=== PATIENT | female | born 1975 | race Caucasian/White ===

== ENCOUNTER 2016-07-05 22:58 | Emergency (ER) | payer SELFPAY ==
[~2016-07-05] VITALS: Ht 167.6 cm; Wt 106.0 kg
[~2016-07-05 22:58] MED LIST: BEN25 PO; BENA20TA48 PO; FAMO-18 PO; PRED20TA PO
[2016-07-05 23:13] VITALS: Ht 167.6 cm; Wt 106.0 kg
== END 2016-07-06 00:49 | disposition left against medical advice (07) ==
LOC: E/R 22:58
DX: Z53.21 Procedure and treatment not carried out due to patient leaving prior to being seen by health care provider (principal)

== ENCOUNTER 2016-10-22 10:36 | Emergency (ER) | payer MEDICAID ==
[~2016-10-22] VITALS: Ht 162.6 cm; Wt 104.0 kg
[~2016-10-22 10:36] MED LIST changes: -FAMO-18 PO; +FAMO-96 PO
[2016-10-22 10:40] VITALS: Ht 162.6 cm; Wt 104.0 kg
--- NOTE | 2016-10-22 10:57 | ERD ---
ER Documentation Chief Complaint Date/Time DATE: 10/22/16 TIME: 10:54 Chief Complaint LT HAND PAIN /SWOLLEN X 1 DAY HPI Patient is a xrnao-ibyn-jofaichu 41-year-old female who states that yesterday she accidentally stuck her left hand smashed between a window in a car door. She now has pain in the left hand and wrist. She has not taken any medications for pain. She denies any numbness or tingling. Denies any other injury. Pain is 4 out of 10 throbbing nonradiating. ROS All systems reviewed and are negative except as per history of present illness. Medications Home Meds Active Scripts Ibuprofen* (Motrin*) 600 Mg Tab, 600 MG PO Q6, #30 TAB Prov:ELEN TILLEY PA-C 10/22/16 Diphenhydramine Hcl* (Benadryl*) 25 Mg Cap, 25 MG PO Q6, #13 CAP Prov:ONIEL ORTEGA DO 11/28/15 Prednisone* (Prednisone*) 20 Mg Tab, 40 MG PO DAILY for 4 Days, TAB Prov:ONIEL ORTEGA DO 11/28/15 Famotidine* (Pepcid*) 20 Mg Tablet, 20 MG PO BID for 4 Days, TAB Prov:ONIEL ORTEGA DO 11/28/15 Reported Medications Benazepril Hcl* (Benazepril Hcl*) 20 Mg Tablet, 20 MG PO DAILY, #30 TAB 11/28/15 Allergies Allergies: Coded Allergies: No Known Allergy (Verified , 11/28/15) PMhx/Soc History of Surgery: Yes (CHOLECYSTECTOMY 2009) Anesthesia Reaction: No Hx Neurological Disorder: No Hx Respiratory Disorders: Yes (ASTHMA NO MEDS) Hx Cardiac Disorders: No Hx Psychiatric Problems: No Hx Miscellaneous Medical Probl: No (LIVER PROBLEMS) Hx Alcohol Use: No Hx Substance Use: No Hx Tobacco Use: No FmHx Family History: diabetes Physical Exam Vitals Vital Signs Date Time Temp Pulse Resp B/P Pulse Ox O2 Delivery O2 Flow Rate FiO2 10/22/16 10:40 98.1 87 18 136/66 98 Physical Exam General: well developed, well nourished, alert, nontoxic, no distress Head: normocephalic, atraumatic Neck: Supple, nontender, no lymphadenopathy, no midline tenderness Respiratory: Clear to auscaultation bilaterally, speaks in full sentences, no use of accesory muscles or labored breathing, no rales, ronchi, or wheezing Cardiovascular: RRR, No murmurs Extremities: Left hand: Radial pulse 2+, no bony abnormalities, no snuffbox tenderness, able to make a fist, capillary refill less than 2 seconds, nontender to palpation, no edema Procedures/MDM 41-year-old female presents with left hand and wrist pain after trauma yesterday. She is neurovascular intact. She declined pain medications at this time. X-rays of the left hand and wrist were obtained. X-rays unremarkable. Patient discharged with ibuprofen. Recommended this patient follow up with her primary care doctor within 48 hours or return to the emergency room for any worsening of symptoms. However this time I do believe there is suitable for outpatient management. I answered all their questions and they agreed with the plan and were discharged home. Departure Diagnosis: Primary Impression: Hand sprain Additional Impression: Wrist sprain Condition: Stable ELEN TILLEY PA-C Oct 22, 2016 10:57
--- NOTE | 2016-10-22 11:39 | RADRPT ---
PROCEDURE: XR Wrist. CLINICAL INDICATION: Left wrist pain TECHNIQUE: 4 views of the left wrist were performed. COMPARISON: Radiographs of the left wrist December 13, 2013 FINDINGS: There is no acute fracture or dislocation. Alignment is normal. Joint spaces are preserved. Visualized soft tissues are grossly unremarkable. IMPRESSION: 1. No radiographic evidence of acute osseous abnormality of the left wrist. RPTAT: UU .Robert Jovel MD, MD Date Time Electronically viewed and signed by .Robert Jovel MD, on 10/22/2016 11:38 .K/
--- NOTE | 2016-10-22 11:39 | RADRPT ---
PROCEDURE: XR left Hand. CLINICAL INDICATION: Left hand pain TECHNIQUE: Three views of the left hand were obtained. COMPARISON: No prior studies are available for comparison. FINDINGS: There is no radiographic evidence of acute fracture. There is mild dorsal soft tissue swelling over the metacarpals. Joint spaces are preserved. There is evidence of a remote fracture of the fifth distal phalanx which has healed. IMPRESSION: No radiographic evidence of acute osseous abnormality noting mild dorsal soft tissue swelling of the hand. RPTAT: UU .Robert Jovel MD, MD Date Time Electronically viewed and signed by .Robert Jovel MD, on 10/22/2016 11:39 .K/
[2016-10-22] MEDS ORDERED: IBUP-1542 PO (11:46)
== END 2016-10-22 13:15 | disposition home or self-care (01) ==
LOC: FTE 10:36
DX: S63.92XA Sprain of unspecified part of left wrist and hand, initial encounter (principal); J45.909 Unspecified asthma, uncomplicated; W23.1XXA Caught, crushed, jammed, or pinched between stationary objects, initial encounter; Y92.9 Unspecified place or not applicable
CPT/HCPCS: 73110; 73130; Z7502

== ENCOUNTER 2016-12-29 17:24 | Emergency (ER) | payer SELFPAY ==
[~2016-12-29] VITALS: Ht 160 cm; Wt 105.0 kg
[~2016-12-29 17:24] MED LIST changes: +IBUP-1542 PO
[2016-12-29 17:35] VITALS: Ht 160 cm; Wt 105.0 kg
== END 2016-12-29 20:07 | disposition left against medical advice (07) ==
LOC: E/R 17:24
DX: Z53.21 Procedure and treatment not carried out due to patient leaving prior to being seen by health care provider (principal)

== ENCOUNTER 2017-04-12 16:09 | Emergency (ER) | END 2017-04-12 20:59 | disposition home or self-care (01) ==

== ENCOUNTER 2017-10-21 11:35 | Emergency (ER) | END 2017-10-21 13:12 | disposition home or self-care (01) ==

== ENCOUNTER 2018-11-22 09:33 | Emergency (ER) | payer OTHER ==
[~2018-11-22] VITALS: Wt 100.0 kg
[~2018-11-22 09:33] MED LIST changes: +BENA20TA4 PO; -BENA20TA48 PO; +CIPR500T4 PO; +FLUC150T PO; +MICO100S4 VG; +NAPR-985 PO; +TRAM50TA2 PO
[2018-11-22 09:35] VITALS: BP 129/59; PULSE 89; RESP 18
[2018-11-22] MEDS ORDERED: SOD CHLORIDE 0.9% 1,000 ML IV STA (10:23)
== END 2018-11-22 11:38 | disposition home or self-care (01) ==
LOC: FTE 09:33
DX: N76.0 Acute vaginitis (principal); J45.909 Unspecified asthma, uncomplicated; E11.65 Type 2 diabetes mellitus with hyperglycemia
CPT/HCPCS: 36415; 80053; 81003; 82962; 83690; 85025; 96360; J7030; Z7502